=== PATIENT | male | born 1990 | race Caucasian/White ===

== ENCOUNTER 2017-08-11 18:04 | Emergency (ER) | payer BC ==
[~2017-08-11] VITALS: Ht 190.5 cm; Wt 96.0 kg
[2017-08-11 18:05] VITALS: BP 144/91
[2017-08-11] MEDS ORDERED: LIDOCAINE 1%, 10ML INFIL ONE (18:30)
[2017-08-11] MEDS ORDERED: LIDOCAINE 1%, 20ML ONE (18:55)
== END 2017-08-11 20:53 | disposition home or self-care (01) ==
LOC: ED 20:09
DX: S61.213A Laceration without foreign body of left middle finger without damage to nail, initial encounter (principal); W26.0XXA Contact with knife, initial encounter; X58.XXXA Exposure to other specified factors, initial encounter; Y93.89 Activity, other specified; Y92.098 Other place in other non-institutional residence as the place of occurrence of the external cause; Y99.8 Other external cause status
CPT/HCPCS: 12001; 29130; 73140; 99284; J3490